=== PATIENT | female | born 1935 | race African-American/Black ===

== ENCOUNTER 2020-07-18 18:02 | Emergency (ER) | payer MEDICARE ==
--- NOTE | 2020-07-18 18:25 | ED ---
General Adult HPI - General Chief complaint: Abdominal Pain Stated complaint: constipation Time Seen by Provider: 07/18/20 18:17 Source: patient Mode of arrival: wheelchair Limitations: no limitations - History of Present Illness Initial comments: Dictation was produced using Backplane dictation software. please excuse any grammatical, word or spelling errors. This patient was cared for during a federal and state declared state of emergency secondary to Covid 19 Chief Complaint: 84-year-old female with past medical history of hysterectomy and CVA and hypertension presents with constipation. History of Present Illness: Patient is an 84-year-old female she's been constipated for the last couple weeks. She did see her primary care physician was advised to take [id number]-[id number] MiraLAX. States that it worked. She took this MiraLAX on Tuesday. Since then she has not had a bowel movement. Patient does complain of some altered left-sided flank pain. She states it hurts with certain movements. Patient complains of some mild nausea but no vomiting. Denies any fever, chills or night sweats. She denies any pain currently. The ROS documented in this emergency department record has been reviewed and confirmed by me. Those systems with pertinent positive or negative responses have been documented in the HPI. All other systems are other negative and/or noncontributory. PHYSICAL EXAM: General Impression: Alert and oriented x3, not in acute distress HEENT: Normocephalic atraumatic, extra-ocular movements intact, pupils equal and reactive to light bilaterally, mucous membranes moist. Cardiovascular: Heart regular rate and rhythm Chest: Able to complete full sentences, no retractions, no tachypnea Abdomen: abdomen soft, mildly distended, slightly tympanitic to percussion, nontender, no organomegaly Musculoskeletal: Pulses present and equal in all extremities, no peripheral edema Motor: no focal deficits noted Neurological: CN II-XII grossly intact, no focal motor or sensory deficits noted Skin: Intact with no visualized rashes Psych: Normal affect and mood ED course: 84-year-old female presents with chief complaint constipation. Vital signs upon arrival are within acceptable limits. Laboratory evaluation obtained. CBC unremarkable. Metabolic panel is negative. Lipase is negative. Abdominal x-ray shows nonacute abdomen. No signs of definite obstruction. There does appear to be mild stool burden. Treatment options for constipation were discussed with patient and family member. She requests that she be administered an enema. Patient tolerated molasses enema well. She is advised to take Metamucil [id number] on a daily basis or increase fiber content of her food EKG interpretation: Ventricular rate 87, normal sinus rhythm,. 150, QRS 84, QTC 423. No CA prolongation, no QTC prolongation, no ST or T-wave changes noted. . Overall, this EKG is unremarkable - Related Data Allergies Allergy/AdvReac Type Severity Reaction Status Date / Time No Known Allergies Allergy Verified 07/18/20 18:15 Review of Systems ROS Statement: Those systems with pertinent positive or pertinent negative responses have been documented in the HPI. ROS Other: All systems not noted in ROS Statement are negative. Past Medical History Past Medical History: CVA/TIA, Hypertension History of Any Multi-Drug Resistant Organisms: None Reported Past Surgical History: Hysterectomy Past Psychological History: No Psychological Hx Reported Smoking Status: Never smoker Past Alcohol Use History: None Reported Past Drug Use History: None Reported General Exam Limitations: no limitations Course Vital Signs 07/18/20 18:11 Temperature 98.7 F Pulse Rate 92 Respiratory 18 Rate Blood Pressure 164/69 O2 Sat by Pulse 98 Oximetry Medical Decision Making - Lab Data Result diagrams: 07/18/20 18:29 07/18/20 18:29 Lab Results 07/18/20 07/18/20 Range/Units 18:29 18:29 WBC 7.5 (3.8-10.6) k/uL RBC 4.91 (3.80-5.40) m/uL Hgb 13.3 (11.4-16.0) gm/dL Hct 41.0 (34.0-46.0) % MCV 83.6 (80.0-100.0) fL MCH 27.1 (25.0-35.0) pg MCHC 32.4 (31.0-37.0) g/dL RDW 12.8 (11.5-15.5) % Plt Count 365 (150-450) k/uL Neutrophils % 63 % Lymphocytes % 21 % Monocytes % 9 % Eosinophils % 3 % Basophils % 1 % Neutrophils # 4.7 (1.3-7.7) k/uL Lymphocytes # 1.6 (1.0-4.8) k/uL Monocytes # 0.7 (0-1.0) k/uL Eosinophils # 0.2 (0-0.7) k/uL Basophils # 0.1 (0-0.2) k/uL Sodium 135 L (137-145) mmol/L Potassium 4.8 (3.5-5.1) mmol/L Chloride 103 (98-107) mmol/L Carbon Dioxide 23 (22-30) mmol/L Anion Gap 9 mmol/L BUN 12 (7-17) mg/dL Creatinine 1.00 (0.52-1.04) mg/dL Est GFR (CKD-EPI)AfAm 60 (>60 ml/min/1.73 sqM) Est GFR (CKD-EPI)NonAf 52 (>60 ml/min/1.73 sqM) Glucose 106 H (74-99) mg/dL Calcium 9.8 (8.4-10.2) mg/dL Total Bilirubin 0.8 (0.2-1.3) mg/dL AST 37 H (14-36) U/L ALT 11 (4-34) U/L Alkaline Phosphatase 86 (38-126) U/L Total Protein 7.5 (6.3-8.2) g/dL Albumin 4.2 (3.5-5.0) g/dL Lipase 72 (23-300) U/L Disposition Clinical Impression: Constipation Disposition: HOME SELF-CARE Condition: Good Instructions (If sedation given, give patient instructions): Constipation (ED) Is patient prescribed a controlled substance at d/c from ED?: No Referrals: Olaf Swenson MD [Primary Care Provider] - 1-2 days Time of Disposition: 21:04
[2020-07-18 18:53] LABS: Basophils # (A) 0.1 k/uL (0-0.2); Basophils % (A) 1 %; Eosinophils # (A) 0.2 k/uL (0-0.7); Eosinophils % (A) 3 %; HGB 13.3 gm/dL (11.4-16.0); Lymphocytes # (A) 1.6 k/uL (1.0-4.8); Lymphocytes % (A) 21 %; MCH 27.1 pg (25.0-35.0); MCHC 32.4 g/dL (31.0-37.0); MCV 83.6 fL (80.0-100.0); Mean Platelet Volume 7.8; Monocytes # (A) 0.7 k/uL (0-1.0); Monocytes % (A) 9 %; Neutrophils # (A) 4.7 k/uL (1.3-7.7); Neutrophils % (A) 63 %; Platelet Count 365 k/uL (150-450); RBC 4.91 m/uL (3.80-5.40); RDW 12.8 % (11.5-15.5); WBC 7.5 k/uL (3.8-10.6)
[2020-07-18 19:05] LABS: Albumin 4.2 g/dL (3.5-5.0); Calcium 9.8 mg/dL (8.4-10.2); Potassium 4.8 mmol/L (3.5-5.1); Total Bilirubin 0.8 mg/dL (0.2-1.3); Total Protein 7.5 g/dL (6.3-8.2)
--- NOTE | 2020-07-18 19:05 | XR ---
EXAMINATION TYPE: XR abdomen 1V DATE OF EXAM: 07/18/2020 COMPARISON: NONE HISTORY: Abdominal pain TECHNIQUE: 2 views upright FINDINGS: There is no sign of intestinal obstruction or pneumoperitoneum. Fecal pattern is normal. Karen ng bases are clear. There are no pathologic calcifications over the kidneys. IMPRESSION: Nonacute abdomen.
[2020-07-18 23:01] VITALS: BP 143/62; PULSE 88; RESP 16; TEMP 98.4
== END 2020-07-18 21:04 | disposition home or self-care (01) ==
LOC: EC 18:02
DX: K59.00 Constipation, unspecified (principal); Z90.710 Acquired absence of both cervix and uterus; Z86.73 Personal history of transient ischemic attack (TIA), and cerebral infarction without residual deficits
CPT/HCPCS: 36415; 74018; 80053; 83690; 85025; 93005; 99284

== ENCOUNTER 2020-07-20 08:35 | Emergency (ER) | payer MEDICARE ==
[2020-07-20 08:46] VITALS: RESP 18
--- NOTE | 2020-07-20 09:11 | ED ---
Abdominal Pain HPI - General Chief Complaint: Abdominal Pain Stated Complaint: poss bowel obstruction-revisit Time Seen by Provider: 07/20/20 08:52 Source: patient Mode of arrival: ambulatory Limitations: no limitations - History of Present Illness Initial Comments: Patient is an 84-year-old female presenting to the emergency department for complaints of constipation. Patient states she was seen in the ER 2 days ago for same complaint. She did have labs and an x-ray which revealed no stiffness abnormalities. She states she was told to take MiraLAX as well as Metamucil. She is given an enema in the ER 2 days ago and she was able to have a bowel movement then. Patient states she is still not been able have a bowel movement since then. She denies any abdominal pain at this time, no vomiting or diarrhea, no bleeding. Patient states she has been able to pass gas. She is urinating without difficulty. She denies any fever, chills, chest pain or shortness of breath. Patient has no other complaints at this time. Upon arrival to the ER, her vitals are stable. - Related Data Home Medications Medication Instructions Recorded Confirmed Ergocalciferol (Vitamin D2) 50,000 unit PO MO 07/20/20 07/20/20 [Drisdol] Fluticasone Nasal [place] [Flonase 1 - 2 spray EA NOSTRIL DAILY PRN 07/20/20 07/20/20 Nasal [place]] Polyethylene Glycol 3350 [Clearlax] 17 gm PO DAILY PRN 07/20/20 07/20/20 Warfarin Sodium 5 mg PO MOWETHFRSA 07/20/20 07/20/20 amLODIPine BESYLATE/BENAZEPRIL 1 cap PO DAILY 07/20/20 07/20/20 [amLODIPine BESYLATE/BENAZEPRIL 5-20 mg] Allergies Allergy/AdvReac Type Severity Reaction Status Date / Time No Known Allergies Allergy Verified 07/20/20 09:39 Review of Systems ROS Statement: Those systems with pertinent positive or pertinent negative responses have been documented in the HPI. ROS Other: All systems not noted in ROS Statement are negative. Past Medical History Past Medical History: CVA/TIA, Hypertension History of Any Multi-Drug Resistant Organisms: None Reported Past Surgical History: Hysterectomy Past Psychological History: No Psychological Hx Reported Smoking Status: Never smoker Past Alcohol Use History: None Reported Past Drug Use History: None Reported General Exam - General Exam Comments Initial Comments: GENERAL: Patient is well-developed and well-nourished. Patient is nontoxic and in no acute distress. HEAD: Atraumatic, normocephalic. EYES: Pupils equal round and reactive to light, extraocular movements intact, sclera anicteric, conjunctiva are normal. Eyelids were unremarkable. ENT: TMs normal, nares patent, oropharynx clear without exudates. Moist mucous membranes. NECK: Normal range of motion, supple without lymphadenopathy or JVD. LUNGS: Unlabored respirations. Breath sounds clear to auscultation bilaterally and equal. No wheezes rales or rhonchi. HEART: Regular rate and rhythm without murmurs, rubs or gallops. ABDOMEN: Soft, nontender, normoactive bowel sounds. No guarding, no rebound. No masses appreciated. : Deferred MUSCULOSKELETAL: Normal extremities with adequate strength and normal range of motion, no pitting or edema. No clubbing or cyanosis. NEUROLOGICAL: Patient is alert and oriented x 3. Motor and sensory are also intact. Symmetrical smile. Normal speech, normal gait. PSYCH: Normal mood, normal affect. SKIN: Warm, Dry, normal turgor, no rashes or lesions noted. Limitations: no limitations Course Vital Signs 07/20/20 08:41 Temperature 98 F Pulse Rate 97 Respiratory 18 Rate Blood Pressure 170/78 O2 Sat by Pulse 100 Oximetry Medical Decision Making - Medical Decision Making Patient is an 84-year-old female here for constipation times one week. Patient was seen in the ER 2 days ago, had normal labs and normal abdominal x-ray. Patient is not having any abdominal pain, she is able pass gas. She has tried MiraLAX and Metamucil at home. Abdominal x-ray today is similar to her previous one, no acute findings. Patient was given a molasses enema which did result in a significant bowel movement. Patient states she is stable to go home. I recommended continuing to increase her water intake, continue with MiraLAX as well as Metamucil. Patient is agreement with this plan of care. She'll follow- up with her PCP. Return parameters were discussed with the patient she verbalized understanding. Case discussed with Dr. Palacio. Disposition Clinical Impression: Constipation Disposition: HOME SELF-CARE Condition: Stable Instructions (If sedation given, give patient instructions): Constipation (ED) Additional Instructions: Please return to the Emergency Department if symptoms worsen or any other concerns. Continue with MiraLAX and Metamucil as discussed. Follow up with PCP. Is patient prescribed a controlled substance at d/c from ED?: No Referrals: Olaf Swenson MD [Primary Care Provider] - 1-2 days
--- NOTE | 2020-07-20 09:27 | XR ---
EXAMINATION TYPE: XR abdomen 1V DATE OF EXAM: 07/20/2020 9:20 AM CLINICAL HISTORY: Constipation TECHNIQUE: Upright images of the abdomen and pelvis were obtained COMPARISON: 07/18/2020 abdominal radiograph. FINDINGS: Scattered gas is seen in non-distended small bowel loops. Gas and mild fecal material is se en in non-distended colon. There is no visceromegaly, pneumoperitoneum, or abnormal calcification sanjay reciated. The lung bases are clear. Degenerative changes of the spine. IMPRESSION: Nonspecific bowel gas pattern. No abnormally increased fecal debris.
[2020-07-20 11:21] VITALS: BP 131/82; PULSE 88; TEMP 98.2
== END 2020-07-20 11:30 | disposition home or self-care (01) ==
LOC: EC 08:35
DX: K59.00 Constipation, unspecified (principal); I10 Essential (primary) hypertension; Z79.899 Other long term (current) drug therapy; Z79.01 Long term (current) use of anticoagulants; Z86.73 Personal history of transient ischemic attack (TIA), and cerebral infarction without residual deficits; Z90.710 Acquired absence of both cervix and uterus
CPT/HCPCS: 74018; 99284

== ENCOUNTER 2023-02-09 13:11 | Emergency (ER) | payer MEDICARE ==
[2023-02-09 13:17] VITALS: TEMP 98.1
--- NOTE | 2023-02-09 13:51 | ED ---
General Adult HPI - General Chief complaint: Abdominal Pain Stated complaint: abd pain Time Seen by Provider: 02/09/23 13:15 Source: patient, family, RN notes reviewed, old records reviewed Mode of arrival: wheelchair Limitations: altered mental status - History of Present Illness Initial comments: This is an 87-year-old female presents emergency Department complaining that she has not a bowel movement 6 days per patient states occasionally she gets cramping currently she has no pain. Patient denies any vomiting. Patient states occasionally she has a little bit of lower back pain. Patient denies any dysuria hematuria urinary frequency. Patient denies any chest pain. Patient denies any shortness of breath or difficulty breathing. Patient denies any recent fever chills or cough. Patient denies any other symptoms at this time other than the fact she can't have a bowel movement. Patient states the last time this occurred was approximately 2 years ago - Related Data Home Medications Medication Instructions Recorded Confirmed Ergocalciferol (Vitamin D2) 1,250 mcg PO MO 07/20/20 02/09/23 [Drisdol] Fluticasone Nasal [place] [Flonase 1 - 2 spray EA NOSTRIL DAILY PRN 07/20/20 02/09/23 Nasal [place]] Warfarin Sodium 5 mg PO HS 07/20/20 02/09/23 amLODIPine BESYLATE/BENAZEPRIL 1 cap PO DAILY 07/20/20 02/09/23 [amLODIPine BESYLATE/BENAZEPRIL 5-20 mg] Furosemide [Lasix] 20 mg PO DAILY PRN 02/09/23 02/09/23 Multivitamins, Thera [Multivitamin 1 tab PO DAILY 02/09/23 02/09/23 (formulary)] Naproxen [Naprosyn] 500 mg PO DAILY PRN 02/09/23 02/09/23 Simvastatin [Zocor] 20 mg PO HS 02/09/23 02/09/23 Allergies Allergy/AdvReac Type Severity Reaction Status Date / Time No Known Allergies Allergy Verified 02/09/23 14:38 Review of Systems ROS Statement: Those systems with pertinent positive or pertinent negative responses have been documented in the HPI. ROS Other: All systems not noted in ROS Statement are negative. Past Medical History Past Medical History: CVA/TIA, Hypertension History of Any Multi-Drug Resistant Organisms: None Reported Past Surgical History: Hysterectomy Past Psychological History: No Psychological Hx Reported Smoking Status: Never smoker Past Alcohol Use History: None Reported Past Drug Use History: None Reported General Exam - General Exam Comments Initial Comments: GENERAL: Patient is well-developed and well-nourished. Patient is nontoxic and well- hydrated and is in no acute distress. ENT: Neck is soft and supple. No significant lymphadenopathy is noted. Oropharynx is clear. Moist mucous membranes. Neck has full range of motion without eliciting any pain. EYES: The sclera were anicteric and conjunctiva were pink and moist. Extraocular movements were intact and pupils were equal round and reactive to light. Eyelids were unremarkable. PULMONARY: Unlabored respirations. Good breath sounds bilaterally. No audible rales rhonchi or wheezing was noted. CARDIOVASCULAR: There is a regular rate and rhythm without any murmurs gallops or rubs. ABDOMEN: Soft and nontender with normal bowel sounds. No palpable organomegaly was noted. There is no palpable pulsatile mass. SKIN: Skin is clear with no lesions or rashes and otherwise unremarkable. NEUROLOGIC: Patient is alert and oriented x3. Cranial nerves II through XII are grossly intact. Motor and sensory are also intact. Normal speech, volume and content. Symmetrical smile. MUSCULOSKELETAL: Normal extremities with adequate strength and full range of motion. No lower extremity swelling or edema. No calf tenderness. LYMPHATICS: No significant lymphadenopathy is noted PSYCHIATRIC: Normal psychiatric evaluation. 6640 Limitations: altered mental status Course Vital Signs 02/09/23 13:12 Temperature 98.1 F Pulse Rate 82 Respiratory 20 Rate Blood Pressure 180/93 O2 Sat by Pulse 99 Oximetry Medical Decision Making - Medical Decision Making Was pt. sent in by a medical professional or institution (, PA, UNIT SUPERVISOR, urgent care, hospital, or retirement...) When possible be specific @ -No Did you speak to anyone other than the patient for history (EMS, parent, family, police, friend...)? What history was obtained from this source @ -No Did you review nursing and triage notes (agree or disagree)? Why? @ -I reviewed and agree with nursing and triage notes Were old charts reviewed (outside hosp., previous admission, EMS record, old EKG, old radiological studies, urgent care reports/EKG's, retirement records)? Report findings @ -No old charts were reviewed Differential Diagnosis (chest pain, altered mental status, abdominal pain women, abdominal pain men, vaginal bleeding, weakness, fever, dyspnea, syncope, headache, dizziness, GI bleed, back pain, seizure, CVA, palpatations, mental health, musculoskeletal)? @ -Differential Abdominal Pain Men: Appendicitis, cholecystitis, diverticulosis, ischemic bowel, pancreatitis, hepatitis, UTI, gastroenteritis, AAA, incarcerated hernia, bowel obstruction, constipation, inflammatory bowel, hepatitis, peptic ulcer disease, splenic infarction, perforated viscus, testicular torsion, this is not meant to be an all-inclusive list EKG interpreted by me (3pts min.). @ -As above X-rays interpreted by me (1pt min.). @ -KUB was interpreted by me it does have some constipation. CT interpreted by me (1pt min.). @ -None done U/S interpreted by me (1pt. min.). @ -None done What testing was considered but not performed or refused? (CT, X-rays, U/S, labs)? Why? @ -None What meds were considered but not given or refused? Why? @ -None Did you discuss the management of the patient with other professionals (professionals i.e. , PA, UNIT SUPERVISOR, lab, RT, psych nurse, social media executive, router operator, teacher, chief credit officer, showcase maker)? Give summary @ -No Was smoking cessation discussed for >3mins.? @ -No Was critical care preformed (if so, how long)? @ -No Were there social determinants of health that impacted care today? How? (Homelessness, low income, unemployed, alcoholism, drug addiction, transportation, low edu. Level, literacy, decrease access to med. care, halfway, rehab)? @ -No Was there de-escalation of care discussed even if they declined (Discuss DNR or withdrawal of care, Hospice)? DNR status @ -No What co-morbidities impacted this encounter? (DM, HTN, Smoking, COPD, CAD, Cancer, CVA, ARF, Chemo, Hep., AIDS, mental health diagnosis, sleep apnea, morbid obesity)? @ -None Was patient admitted / discharged? Hospital course, mention meds given and route, prescriptions, significant lab abnormalities, going to OR and other p ertinent info. @ -Patient had a KUB done showed some constipation she was given an enema she had very little results but she did want to go home and try something orally to get things moving. Patient continued to have no abdominal pain all in the emergency department had no fevers and had no other complaints at this time other than constipation Undiagnosed new problem with uncertain prognosis? @ -No Drug Therapy requiring intensive monitoring for toxicity (Heparin, Nitro, Insulin, Cardizem)? @ -No Were any procedures done? @ -No Diagnosis/symptom? @ -Constipation Acute, or Chronic, or Acute on Chronic? @ -Acute Uncomplicated (without systemic symptoms) or Complicated (systemic symptoms)? @ -Uncomplicated Side effects of treatment? @ -No Exacerbation, Progression, or Severe Exacerbation? @ -No Poses a threat to life or bodily function? How? (Chest pain, USA, CT, pneumonia, PE, COPD, DKA, ARF, appy, cholecystitis, CVA, Diverticulitis, Homicidal, Suicidal, threat to staff... and all critical care pts) @ -No Disposition Clinical Impression: Constipation Disposition: HOME SELF-CARE Instructions (If sedation given, give patient instructions): Constipation (ED), High Fiber Diet (ED) Is patient prescribed a controlled substance at d/c from ED?: No Referrals: None,Stated [REFERRING] - 1-2 days Time of Disposition: 16:47
--- NOTE | 2023-02-09 14:04 | XR ---
EXAMINATION TYPE: XR KUB DATE OF EXAM: 02/09/2023 1:52 PM INDICATION: Patient age:Female; 87 years old; Reason for study: Abdominal pain; COMPARISON: None. TECHNIQUE: One radiographic view of the abdomen was obtained. FINDINGS: The bowel gas pattern is nonspecific without dilated loops of small or large bowel. There i s no evidence for organomegaly or pneumoperitoneum. The osseous structures are intact. Calcificatio n densities measuring up to 8 mm project over the left kidney. Fecal material and gas are demonstrate d throughout the colon and rectum. Mild scoliosis changes of the lumbar spine with osteophyte formation. Levoscoliosis apex L3. 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 IMPRESSION: 1. Nonspecific bowel gas pattern without radiographic evidence for acute process. 2. Suspected left renal calculus.
[2023-02-09 17:06] VITALS: BP 120/67; PULSE 78; RESP 18
[2023-02-09] MEDS ORDERED: MAGNESIUM CITRATE 296 ML BOTTLE PO ONE (17:15)
== END 2023-02-09 17:06 | disposition home or self-care (01) ==
LOC: EC 13:11
DX: K59.00 Constipation, unspecified (principal); I10 Essential (primary) hypertension; Z79.899 Other long term (current) drug therapy
CPT/HCPCS: 74018; 99284